=== PATIENT | female | born 1990 | race Two or more races ===

== ENCOUNTER 2020-09-29 09:08 | Day surgery (SDC) | payer MEDICAID ==
[~2020-09-29] VITALS: Ht 167.6 cm; Wt 61.2 kg
[~2020-09-29 09:08] MED LIST changes: -CYCL10TA7 PO; +LACTATED RINGERS 1,000 ML IV SCH
[2020-09-29] MEDS ORDERED: CYCL10TA7 PO (09:54)
[2020-09-29 09:55] LABS: CLARITY URINE CLOUDY (CLEAR); COLOR URINE YELLOW (YELLOW); KETONES URINE NEGATIVE (NEGATIVE); LEUKOCYTE ESTERASE URINE NEGATIVE (NEGATIVE); NITRITE URINE NEGATIVE (NEGATIVE); OCCULT BLOOD URINE NEGATIVE (NEGATIVE); PROTEIN URINE NEGATIVE (NEGATIVE); SPECIFIC GRAVITY URINE 1.026 (1.005-1.030); UROBILINOGEN URINE 0.2 E.U./dL (0.2-1.0)
[2020-09-29 09:58] LABS: UCG SCREEN NEGATIVE
[2020-09-29] MEDS ORDERED: ROPIVACAINE HCL 10MG/ML 20 ML VIAL EPI ONE (10:01)
[2020-09-29 10:03] LABS: BASOPHILS % 0.9 % (0.0-2.0); EOSINOPHILS % 2.4 % (0.0-5.0); HEMATOCRIT. 38.2 % (36.0-48.0); HEMOGLOBIN. 12.8 g/dL (12.0-16.0); LYMPHOCYTES % 36.1 % (20.0-50.0); MEAN CORPUSCULAR HEMOGLOBIN 29.4 pg (28.0-32.0); MEAN CORPUSCULAR VOLUME 87.7 fL (81.0-99.0); MEAN PLATELET VOLUME 8.2 fl (7.4-10.4); MONOCYTES % 7.3 % (2.0-8.0); NEUTROPHILS % 53.3 % (40.0-76.0); PLATELET 263 x1000/uL (130-400); RED BLOOD CELL COUNT 4.36 mill/uL (4.2-5.4); RED CELL DISTRIBUTION WIDTH 12.5 % (11.6-14.6)
[2020-09-29 10:07] LABS: CHLORIDE 105 mEq/L (98-107)
[2020-09-29 10:10] LABS: PARTIAL THROMBOPLASTIN TIME 26.9 sec (23.4-31.0); PROTHROMBIN TIME 10.2 sec (9.6-11.0)
[2020-09-29] MEDS ORDERED: FENTANYL CITRATE/PF 50MCG/ML 2ML VIAL ONE (10:26)
[2020-09-29] MEDS ORDERED: MIDAZOLAM HCL 2 MG/2 ML VIAL ONE (10:26)
[2020-09-29] MEDS ORDERED: PROPOFOL 200MG/20ML VIAL IV ONE (10:33)
[2020-09-29] MEDS ORDERED: ROCURONIUM BROMIDE 10MG/ML VIAL 5ML IV ONE (10:35)
[2020-09-29] MEDS ORDERED: SKIN ADHESIVE 0.7 GM EA TOP ONE (10:37)
[2020-09-29] MEDS ORDERED: VASOPRESSIN 20 UNIT/ML 1ML ONE (10:37)
[2020-09-29] MEDS ORDERED: BUPIVACAINE HCL/PF 0.5% (5MG/ML) 10ML ONE (10:37)
[2020-09-29] MEDS ORDERED: SUCCINYLCHOLINE CHLORIDE 200MG/10ML IV ONE (10:38)
[2020-09-29] MEDS ORDERED: LEVOFLOXACIN 500MG PREMIX 100 ML IV ONE (10:45)
[2020-09-29] MEDS ORDERED: KETOROLAC 30MG/ML VIAL ONE (10:59)
[2020-09-29] MEDS ORDERED: DEXAMETHASONE 4MG/ML 1ML VIAL ONE (10:59)
[2020-09-29] MEDS ORDERED: ONDANSETRON HCL 4MG/2ML INJ ONE (11:07)
[2020-09-29] MEDS ORDERED: NEOSTIGMINE METHYLSULFATE 1MG/ML 10 ML VIAL ONE (11:58)
[2020-09-29] MEDS ORDERED: GLYCOPYRROLATE 0.2 MG/ML 2ML VIAL ONE (11:58)
[2020-09-29] MEDS ORDERED: MORPHINE SULFATE 4 MG/ML CPJ (NOT FOR IM USE) IV PRN (12:15)
[2020-09-29] MEDS ORDERED: HYDROCODONE/ACETAMINOPHEN 5/325MG TABLET PO PRN (12:15)
[2020-09-29] MEDS ORDERED: ONDANSETRON HCL 4MG/2ML INJ IV PRN (12:15)
[2020-09-29] MEDS: HYDROMORPHONE HCL/PF 2MG/ML CPJ IV PRN ×7 (12:41→13:26)
[2020-09-29] MEDS ORDERED: OXYCODONE HCL/ACETAMINOPHEN 5/325MG TABLET PO NR (14:30)
[2020-09-29 14:38] VITALS: BP 123/69
== END 2020-09-29 15:10 | disposition home or self-care (01) ==
LOC: OR 09:08
PROVIDERS: ATTEND Obstetrics & Gynecology
DX: N83.201 Unspecified ovarian cyst, right side (principal); K08.409 Partial loss of teeth, unspecified cause, unspecified class; Z88.0 Allergy status to penicillin; Z88.5 Allergy status to narcotic agent; Z88.8 Allergy status to other drugs, medicaments and biological substances; Z79.899 Other long term (current) drug therapy; Z98.890 Other specified postprocedural states
CPT/HCPCS: 36415; 58662; 80048; 81003; 81025; 85025; 85610; 85730; 88304; J0330; J1100; J1170; J1885; J1956; J2250; J2405; J2704; J2710; J2795; J3010; J3490; S2900

== ENCOUNTER → 2020-09-29 | Outpatient (CLI) | payer MEDICAID ==
[~2020-09-29] MED LIST: CYCL10TA7 PO
== END | disposition home or self-care (01) ==
LOC: LAB 07:59
PROVIDERS: ATTEND Obstetrics & Gynecology
DX: Z01.812 Encounter for preprocedural laboratory examination (principal); Z20.828 Contact with and (suspected) exposure to other viral communicable diseases
CPT/HCPCS: 87426

== ENCOUNTER 2020-10-01 16:20 | Emergency (ER) | payer MEDICAID ==
[~2020-10-01] VITALS: Ht 167.6 cm; Wt 61.0 kg
[~2020-10-01 16:20] MED LIST changes: +CYCL10TA7 PO; -LACTATED RINGERS 1,000 ML IV SCH
[2020-10-01 16:28] VITALS: BP 129/79
[2020-10-01] MEDS ORDERED: ONDANSETRON HCL 4MG/2ML INJ IV STA (17:56)
[2020-10-01] MEDS ORDERED: SODIUM CHLORIDE 0.9% 1,000 ML IV ONE (18:00)
[2020-10-01 18:29] LABS: CLARITY URINE TURBID (CLEAR); COLOR URINE YELLOW (YELLOW); KETONES URINE 1+ (NEGATIVE); LEUKOCYTE ESTERASE URINE NEGATIVE (NEGATIVE); NITRITE URINE NEGATIVE (NEGATIVE); OCCULT BLOOD URINE TRACE (NEGATIVE); PROTEIN URINE NEGATIVE (NEGATIVE); SPECIFIC GRAVITY URINE 1.018 (1.005-1.030); UROBILINOGEN URINE 0.2 E.U./dL (0.2-1.0)
[2020-10-01 18:42] LABS: BASOPHILS % 0.7 % (0.0-2.0); EOSINOPHILS % 1.1 % (0.0-5.0); HEMATOCRIT. 34.3 % (36.0-48.0); HEMOGLOBIN. 11.6 g/dL (12.0-16.0); LYMPHOCYTES % 18.9 % (20.0-50.0); MEAN CORPUSCULAR HEMOGLOBIN 29.7 pg (28.0-32.0); MEAN CORPUSCULAR VOLUME 88.1 fL (81.0-99.0); MEAN PLATELET VOLUME 8.4 fl (7.4-10.4); MONOCYTES % 5.2 % (2.0-8.0); NEUTROPHILS % 74.1 % (40.0-76.0); PLATELET 238 x1000/uL (130-400); RED BLOOD CELL COUNT 3.89 mill/uL (4.2-5.4); RED CELL DISTRIBUTION WIDTH 12.4 % (11.6-14.6)
[2020-10-01 18:43] LABS: CHLORIDE 102 mEq/L (98-107)
[2020-10-01 18:46] LABS: INR 0.9; PROTHROMBIN TIME 9.8 sec (9.6-11.0)
[2020-10-01] MEDS ORDERED: ONDANSETRON HCL 4MG/2ML INJ IV ONE (19:45)
[2020-10-01] MEDS ORDERED: DIPHENHYDRAMINE 50MG/ML VIAL IV ONE (21:30)
[2020-10-01] MEDS ORDERED: KETOROLAC 15MG/ML VIAL IV ONE (21:30)
[2020-10-01] MEDS ORDERED: IOHEXOL-300 100 ML BOTTLE ONE (21:34)
[2020-10-02 10:40] LABS: UCG SCREEN NEGATIVE
== END 2020-10-01 23:33 | disposition home or self-care (01) ==
LOC: ER 16:20
DX: G89.18 Other acute postprocedural pain (principal); R11.2 Nausea with vomiting, unspecified; Z98.890 Other specified postprocedural states; Z88.0 Allergy status to penicillin; Z88.5 Allergy status to narcotic agent; Z88.6 Allergy status to analgesic agent; Z88.8 Allergy status to other drugs, medicaments and biological substances
CPT/HCPCS: 36415; 74177; 80053; 81003; 81025; 83605; 83690; 85025; 85610; 93005; 96361; 96374; 96375; 96376; 99285; J1200; J1885; J2405; J7030; Q9967; Z7610